=== PATIENT | female | born 1955 | race Caucasian/White ===

== ENCOUNTER → 2016-05-23 | Outpatient (CLI) | payer OTHER ==
[~2016-05-23] MED LIST: CALCIUM 600 +1 EAC6 PO; DITROPAN5 MG PO; ELIQUIS5 MG PO; ENALAPRIL-HCTZ1 EAC1 PO; FISH OIL 1,0001 EAC1 PO; GLUCOPHAGE500 MG PO; GLUCOSAMINE &1 EAC1 PO; GLYBURIDE5 MG PO; LASIX40 MG PO; NEURONTIN300 MG PO; PROTONIX40 MG PO; TART CHERRY CA1 EACH PO; ZYLOPRIM300 MG PO
== END | disposition disaster alternative care site (69) ==
LOC: GRAD 11:00
DX: R10.9 Unspecified abdominal pain (principal); I70.0 Atherosclerosis of aorta
CPT/HCPCS: Q9967

== ENCOUNTER → 2016-05-28 | Day surgery (SDC) | payer OTHER ==
[~2016-05-28] VITALS: Ht 172.7 cm; Wt 94.0 kg
== END | disposition disaster alternative care site (69) ==
LOC: GPOC 05-24 16:00 → GEND 08:50 → GPOC 09:00
PROC: 0DB68ZX Excision of Stomach, Via Natural or Artificial Opening Endoscopic, Diagnostic (ICD-10-PCS; principal; 2016-05-28)
PROC: 0DBH8ZZ Excision of Cecum, Via Natural or Artificial Opening Endoscopic (ICD-10-PCS; 2016-05-28)
DX: Z12.11 Encounter for screening for malignant neoplasm of colon (principal); K31.7 Polyp of stomach and duodenum; K63.5 Polyp of colon; K21.9 Gastro-esophageal reflux disease without esophagitis; K44.9 Diaphragmatic hernia without obstruction or gangrene; I10 Essential (primary) hypertension; E11.9 Type 2 diabetes mellitus without complications
CPT/HCPCS: J2001; J7030

== ENCOUNTER 2016-07-17 11:29 | Emergency (ER) | payer OTHER ==
--- NOTE | ~2016-07-17 | ER ---
PATIENT'S NAME: ADAIR LOTT [facility] AGE: 60 Y [address] ROOM: [place] [address] LOCATION: ED ADMIT DATE: 07/17/2016 ER/Outpatient Report DISCHARGE DATE: 07/17/2016 FAMILY PHYSICIAN: PHYSICIAN, NO ATTENDING PHYSICIAN: Ivan Vance CHIEF COMPLAINT: Nausea and vomiting. HISTORY OF PRESENT ILLNESS: The patient had diskectomy of the neck yesterday by Dr. Alba. Since then, she has developed some headache, but is otherwise feeling okay. It has been slow onset. She is just generally feeling like she never really got over anesthesia and all symptoms have been present since her surgery. She denies thunderclap-type onset of the headache. No other sensory deficits or neurologic changes. Her home medications do not seem to have helped. PAST MEDICAL HISTORY: As documented on the record and have been reviewed by me. SOCIAL HISTORY: As documented on the record and have been reviewed by me. MEDICATIONS: As documented on the record and have been reviewed by me. ALLERGIES: DOCUMENTED ON THE RECORD AND HAVE BEEN REVIEWED BY ME. REVIEW OF SYSTEMS: All systems were reviewed and negative except as noted in the HPI. PHYSICAL EXAMINATION: VITAL SIGNS: Blood pressure 132/72, pulse 63, respiratory rate is 16, temperature 98.0, and SpO2 is 92% on room air. Pain is rated at 3/10. GENERAL: Age-appropriate female, in obvious mild discomfort with no acute distress or obvious pain, sitting in the exam table. NEUROLOGIC: The patient is awake and alert, moves all extremities appropriately. Gait without obvious abnormality. No obvious asymmetry on exam. HEENT: Normocephalic, atraumatic. Eyes are PERRL. Oropharynx is slightly dry. NECK: Supple with surgical bandages and [place]-J collar in place. CHEST: Heart has regular rate and rhythm with no murmurs. LUNGS: Grossly clear to auscultation bilaterally with no rhonchi, wheezes, or PATIENT'S NAME: ADAIR LOTT [facility] AGE: 60 Y [address] ROOM: [place] [address] LOCATION: ED ADMIT DATE: 07/17/2016 ER/Outpatient Report DISCHARGE DATE: 07/17/2016 FAMILY PHYSICIAN: PHYSICIAN, NO ATTENDING PHYSICIAN: Ivan Vance. ABDOMEN: Obese, but benign. EXTREMITIES: Warm and well perfused. No obvious abnormalities. SKIN: Warm, dry, and intact. LABORATORY DATA AND X-RAYS: No imaging was obtained. Labs: CMS with no significant abnormalities. Procalcitonin is below threshold. CBC without significant abnormalities, and lactate is 1.4. IMPRESSION: Postoperative nausea, vomiting with headache. EMERGENCY DEPARTMENT COURSE: The patient was seen and evaluated as above. She was given fluids, Compazine and Benadryl with almost complete instant resolution of her symptoms. She was able to tolerate oral intake and will be discharged home to follow up with her usual providers as needed. She does state that she has home pain and nausea medication, which she should take as directed. Return immediately if worse. All questions were answered, and the patient was discharged. MD SUSANA MENESES/sveta /[id number] d: 07/17/16 2359 t: 07/30/16 1732, OUTPATIENT REPORT
[2016-07-17 12:16] LABS: BASOPHIL % 0.4 %; EOSINOPHIL # 0.1 K/uL (0.0-0.5); EOSINOPHIL % 0.7 %; HEMATOCRIT 40.7 % (33.0-46.0); HEMOGLOBIN 12.9 g/dL (10.0-15.0); IMMATURE GRANULOCYTE % 0.3 %; LYMPHOCYTE # 1.2 K/uL (0.8-4.0); LYMPHOCYTE % 15.3 %; MCH 29.8 pg (27.0-34.0); MCHC 31.7 gm/dL (32.0-36.5); MONOCYTE # 0.3 K/uL (0.0-1.0); MONOCYTE % 3.3 %; MPV 9.4 fl (9.4-12.4); NEUTROPHIL # (ANC) 6.1 K/uL (1.8-7.8); NRBC % 0 /100WBC (0-0.00); PLATELET COUNT 197 K/uL (150-450); RBC 4.33 M/uL (3.50-5.50); RDW-CV 14.2 % (11.9-14.6); WBC 7.6 K/uL (4.0-11.0)
[2016-07-17 12:46] LABS: ALBUMIN 3.3 gm/dL (3.5-5.0); ALK PHOS 79 IU/L (33-138); ALT 36 IU/L (12-78); ANION GAP 10.8 (10.0-19.0); AST 21 IU/L (10-40); BLOOD UREA NITROGEN 12 mg/dL (6-24); CALCIUM 8.8 mg/dL (8.5-10.5); CHLORIDE 104 mMol/L (96-110); CO2 28 mMol/L (22-32); CREATININE 0.7 mg/dL (0.5-1.1); ESTIMATED GFR (MDRD EQUATION) > 60; POTASSIUM 3.8 mMol/L (3.7-5.1); SODIUM 139 mMol/L (135-145); TOTAL BILIRUBIN 0.5 mg/dL (0.0-1.5); TOTAL PROTEIN 7.3 g/dL (6.0-8.4)
== END 2016-07-17 14:34 | disposition disaster alternative care site (69) ==
LOC: GMED 11:29
PROVIDERS: Emergency Medicine
DX: M96.89 Other intraoperative and postprocedural complications and disorders of the musculoskeletal system (principal); R11.2 Nausea with vomiting, unspecified; R51 Headache; Z88.5 Allergy status to narcotic agent; Z88.1 Allergy status to other antibiotic agents; Z79.899 Other long term (current) drug therapy
CPT/HCPCS: J0780; J1200; J2405; J7030